=== PATIENT | female | born 1975 | race Caucasian/White ===

== ENCOUNTER 2016-08-07 08:40 | Day surgery (SDC) | payer BC ==
[~2016-08-07 08:40] MED LIST: IRON325 M3 PO; NORCO 5/3251 TA2 NG; PERCOCET 5/3251 TAB PO; PRENATAL1 EACH PO; ZOLOFT100 M1 PO; ZOLOFT50 MG PO
== END 2016-08-07 15:10 ==
LOC: WSU 08:40 → SHSB 08:43 → ORW 11:01 → PACU 11:34 → SHSB 13:15
PROC: 0U5B8ZZ Destruction of Endometrium, Via Natural or Artificial Opening Endoscopic (ICD-10-PCS; principal; 2016-08-07)
DX: N92.1 Excessive and frequent menstruation with irregular cycle (principal); F41.9 Anxiety disorder, unspecified; Z79.899 Other long term (current) drug therapy; Z90.49 Acquired absence of other specified parts of digestive tract; Z98.890 Other specified postprocedural states
CPT/HCPCS: J1170; J1885; J3010